=== PATIENT | female | born 2000 | race Caucasian/White ===

== ENCOUNTER 2019-03-18 16:17 | Emergency (ER) | payer BC, OTHER ==
[~2019-03-18] VITALS: Ht 160 cm; Wt 53.0 kg
[2019-03-18 16:53] LABS: BASOPHILS # (AUTO) 0.2 X10'3 (0-0.2); BASOPHILS % (AUTO) 1.1 % (0-1); EOSINOPHILS # (AUTO) 0.4 X10'3 (0-0.9); EOSINOPHILS % (AUTO) 2.2 % (0-6); HEMATOCRIT 41.2 % (35.0-45.0); HEMOGLOBIN 14.1 g/dl (12.0-16.0); LYMPHOCYTES # (AUTO) 7.5 X10'3 (1.1-4.8); LYMPHOCYTES % (AUTO) 45.8 % (21-51); MEAN CORPUSCULAR HEMOGLOBIN 29.9 PG (27.0-31.0); MEAN CORPUSCULAR HGB CONC 34.1 g/dL (33.0-36.5); MEAN CORPUSCULAR VOLUME 87.7 FL (78-98); MEAN PLATELET VOLUME 8.1 FL (7.4-10.4); MONOCYTES # (AUTO) 1.2 X10'3 (0-0.9); MONOCYTES % (AUTO) 7.3 % (2-12); NEUTROPHILS # (AUTO) 7.1 X10'3 (1.8-7.7); NEUTROPHILS % (AUTO) 43.6 % (42-75); PLATELET COUNT 348 X10'3 (140-440); WHITE BLOOD COUNT 16.4 X10'3 (4.5-11.0)
--- NOTE | 2019-03-18 17:07 | NUR ---
patient on [facility].
--- NOTE | 2019-03-18 17:07 | NUR ---
offered bedpan-patient unable to void.
[2019-03-18 17:28] LABS: ALANINE AMINOTRANSFERASE 35 U/L (12-78); ALBUMIN 4.2 G/DL (3.4-5.0); ALBUMIN/GLOBULIN RATIO 1.2 (1.1-1.5); ALKALINE PHOSPHATASE 98 IU/L (20-180); ANION GAP 15 (8-16); ASPARTATE AMINO TRANSFERASE 20 U/L (10-37); BILIRUBIN,TOTAL 0.7 MG/DL (0.1-1.0); BLOOD UREA NITROGEN 6 MG/DL (7-18); BUN/CREATININE RATIO 7.9 (6.6-38.0); CHLORIDE 107 MMOL/L (99-107); CREATININE 0.76 MG/DL (0.40-0.90); GLUCOSE 113 MG/DL (70-104); LIPASE 144 U/L (73-393); POTASSIUM 3.5 MMOL/L (3.5-5.1); SODIUM 143 MMOL/L (135-145); TOTAL PROTEIN 7.8 G/DL (6.4-8.2); eGFR > 90 ML/MIN
[2019-03-18] MEDS ORDERED: diphenhydrAMINE 50 mg/ml inj IV ONE (17:30)
[2019-03-18] MEDS ORDERED: ondansetron/PF 4mg/2ml inj IV ONE (17:30)
[2019-03-18] MEDS ORDERED: haloperidol lactate 5mg/ml inj IM ONE (17:30)
[2019-03-18] MEDS ORDERED: morphine 4 MG/ML inj SYRINge IV ONE (17:30)
[2019-03-18 18:02] LABS: URINE HCG NEGATIVE (NEG)
[2019-03-18 18:03] LABS: CLARITY,URINE CLOUDY (Clear); COLOR,URINE YELLOW (Yellow); GLUCOSE, URINE NEGATIVE (Neg); KETONES,URINE 15 mg/dl (Neg); LEUKOCYTE ESTERASE ,URINE NEGATIVE (Neg); NITRITES, URINE NEGATIVE (Neg); OCCULT BLOOD,URINE NEGATIVE (Neg); PH,URINE 8.5 (4.8-8.0); PROTEIN,URINE TRACE mg/dl (Neg); UROBILINOGEN,URINE 0.2 E.U/dL (0.2-1.0)
[2019-03-18 18:04] LABS: UA COLLECTION TYPE STRAIGHT CATH
--- NOTE | 2019-03-18 18:07 | NUR ---
Pt no longer actively vomiting, resting comfortably. Encouraged to start drinking water to fill bladder for US.
[2019-03-18 18:15] LABS: SQUAMOUS EPITHELIAL CELL,UR FEW /LPF (FEW)
[2019-03-18 18:16] LABS: AMORPHOUS PHOSPHATES 2+
[2019-03-18 18:18] LABS: BACTERIA,URINE FEW /HPF (Neg); RBC,URINE 0-2 /HPF (0-2); WBC,URINE 0-4 /HPF (0-4)
[2019-03-18] MEDS ORDERED: normal saline 1000ml 1,000 ML IV ONE (18:25)
--- NOTE | 2019-03-18 18:54 | NUR ---
Doppler tech at bedside for study as ordered.
[2019-03-18] MEDS ORDERED: ONDA4TAB6 PO (19:18)
[2019-03-18] MEDS ORDERED: HYDR-4353 PO (19:18)
[2019-03-18 19:26] VITALS: BP 107/60
--- NOTE | 2019-03-18 19:28 | NUR ---
dr yañez talking with pt and mother. pt denies any pain and has minimal nausea. able to tolerate meri of water. given juice and crackers for po challenge. current vss.
== END 2019-03-18 19:57 | disposition home or self-care (01) ==
LOC: ER 16:18
DX: N83.201 Unspecified ovarian cyst, right side (principal); R11.2 Nausea with vomiting, unspecified; F12.90 Cannabis use, unspecified, uncomplicated; Z79.899 Other long term (current) drug therapy
CPT/HCPCS: 36415; 76830; 76856; 80053; 81001; 81025; 83690; 85025; 85610; 96361; 96372; 96374; 96375; 99284; J1200; J1630; J2270; J2405; J7030

== ENCOUNTER 2021-05-11 09:53 | Emergency (ER) | payer BC ==
[~2021-05-11] VITALS: Ht 160 cm; Wt 59.1 kg
[~2021-05-11 09:53] MED LIST: ONDA4TAB6 PO
[2021-05-11] MEDS ORDERED: normal saline 1000ML IV soln IVB ONE (10:35)
[2021-05-11] MEDS ORDERED: proCHLORperazine 10 MG/2 ml inj IV ONE (10:35)
[2021-05-11] MEDS ORDERED: ketorolac tromethamine 15mg/ml inj. IV ONE (10:55)
[2021-05-11 11:08] VITALS: BP 128/86
[2021-05-11 11:50] LABS: BASOPHILS # (AUTO) 0.1 X10'3 (0-0.2); BASOPHILS % (AUTO) 1.2 % (0-1); EOSINOPHILS # (AUTO) 0.1 X10'3 (0-0.9); EOSINOPHILS % (AUTO) 1.9 % (0-6); HEMATOCRIT 40.3 % (35.0-45.0); HEMOGLOBIN 14.1 g/dl (12.0-16.0); LYMPHOCYTES # (AUTO) 1.9 X10'3 (1.1-4.8); LYMPHOCYTES % (AUTO) 23.5 % (21-51); MEAN CORPUSCULAR HEMOGLOBIN 31.1 PG (27.0-31.0); MEAN CORPUSCULAR HGB CONC 34.9 g/dL (33.0-36.5); MEAN CORPUSCULAR VOLUME 89.2 FL (78-98); MONOCYTES # (AUTO) 0.3 X10'3 (0-0.9); MONOCYTES % (AUTO) 3.8 % (2-12); NEUTROPHILS # (AUTO) 5.6 X10'3 (1.8-7.7); NEUTROPHILS % (AUTO) 69.6 % (42-75); PLATELET COUNT 335 X10'3 (140-440); RED BLOOD COUNT 4.52 X10'6 (4.20-5.60)
[2021-05-11] MEDS ORDERED: ondansetron/PF 4mg/2ml inj IV ONE (11:50)
[2021-05-11 12:11] LABS: ALANINE AMINOTRANSFERASE 27 U/L (12-78); ALBUMIN 4.1 G/DL (3.4-5.0); ALBUMIN/GLOBULIN RATIO 1.2 (1.1-1.5); ALKALINE PHOSPHATASE 89 IU/L (46-116); ANION GAP 12 (8-16); ASPARTATE AMINO TRANSFERASE 20 U/L (10-37); BILIRUBIN,TOTAL 0.6 MG/DL (0.1-1.0); BLOOD UREA NITROGEN 7 MG/DL (7-18); CALCIUM 8.5 MG/DL (8.5-10.1); CHLORIDE 108 MMOL/L (99-107); CREATININE 0.78 MG/DL (0.40-0.90); GLUCOSE 117 MG/DL (70-104); LIPASE 72 U/L (73-393); POTASSIUM 3.7 MMOL/L (3.5-5.1); SODIUM 143 MMOL/L (135-145); TOTAL CARBON DIOXIDE 22.7 MMOL/L (24-32); TOTAL PROTEIN 7.6 G/DL (6.4-8.2); eGFR > 90 ML/MIN
[2021-05-11 12:42] LABS: URINE HCG NEGATIVE (NEG)
[2021-05-11 12:48] LABS: CLARITY,URINE Cloudy (Clear); COLOR,URINE YELLOW (Yellow); GLUCOSE, URINE NEGATIVE (Neg); KETONES,URINE NEGATIVE (Neg); LEUKOCYTE ESTERASE ,URINE NEGATIVE (Neg); NITRITES, URINE NEGATIVE (Neg); OCCULT BLOOD,URINE LARGE (Neg); PH,URINE 8.5 (4.8-8.0); PROTEIN,URINE TRACE mg/dl (Neg); UA COLLECTION TYPE NON-SPECIFIED; UROBILINOGEN,URINE 0.2 E.U/dL (0.2-1.0)
[2021-05-11 13:01] LABS: BACTERIA,URINE FEW /HPF (Neg); SQUAMOUS EPITHELIAL CELL,UR FEW /LPF (FEW)
[2021-05-11 13:03] LABS: AMORPHOUS PHOSPHATES 3+
[2021-05-11] MEDS ORDERED: HYDR-3965 PO (13:18)
[2021-05-11] MEDS ORDERED: ONDA4TAB6 PO (13:18)
[2021-05-11] MEDS ORDERED: NITR100C6 PO (19:15)
== END 2021-05-11 13:34 | disposition home or self-care (01) ==
LOC: ER 09:53
DX: N83.201 Unspecified ovarian cyst, right side (principal); R10.84 Generalized abdominal pain; F12.90 Cannabis use, unspecified, uncomplicated; Z79.899 Other long term (current) drug therapy; Z91.048 Other nonmedicinal substance allergy status
CPT/HCPCS: 36415; 76856; 80053; 81001; 81025; 83690; 85025; 87088; 93976; 96361; 96374; 96375; 99284; J0780; J1885; J2405; J7030